=== PATIENT | male | born 1970 | race Caucasian/White ===

== ENCOUNTER → 2020-07-15 | Emergency (ER) | payer OTHER ==
[~2020-07-15] VITALS: Ht 172.7 cm; Wt 76.2 kg
[~2020-07-15] MED LIST: AZITHROMYCIN250 MG PO; CITALOPRAM HBR40 MG PO; ESTAZOLAM2 MG PO; MOTION RELIEF25 MG PO; PHENERGAN25 MG PO
== END | disposition home or self-care (01) ==
LOC: ER 13:00
DX: H81.13 Benign paroxysmal vertigo, bilateral (principal); R51.9 Headache, unspecified; Z03.818 Encounter for observation for suspected exposure to other biological agents ruled out

== ENCOUNTER 2020-08-18 11:39 | Outpatient (CLI) | payer OTHER | END 2020-08-18 13:04 | disposition home or self-care (01) | LOC: OFIC 805 11:39 | PROVIDERS: ATTEND Otolaryngology | DX: H81.12 Benign paroxysmal vertigo, left ear (principal) ==

== ENCOUNTER 2023-08-10 06:47 | Emergency (ER) | payer OTHER ==
[~2023-08-10] VITALS: Ht 172.7 cm; Wt 80.7 kg
[2023-08-10] MEDS ORDERED: ZOLOFT25 MG (07:03)
[2023-08-10] MEDS ORDERED: FAMOTIDINE/PF 20 MG/2 ML VIAL IV PUSH STA (08:33)
[2023-08-10] MEDS ORDERED: KETOROLAC TROMETHAMINE 30 MG VIAL IV STA (08:34)
[2023-08-10] MEDS ORDERED: 0.9 % SODIUM CHLORIDE 1,000 ML IV SCH (08:45)
[2023-08-10] MEDS ORDERED: PROMETHAZINE HCL 50 MG/ML AMPUL IM ONE (08:45)
[2023-08-10] MEDS ORDERED: HYOSCYAMINE SULFATE 0.125 MG TAB.SUBL SL ONE (08:45)
[2023-08-10 08:49] LABS: HEMATOCRIT 46.1 % (39.0-48.0); HEMOGLOBIN 15.7 g/dL (13-16.00); MEAN CELL VOLUME 99.3 fL (80.0-100.00); MEAN CORPUSCULAR HEMOGLOBIN 33.8 pg (27.00-32.0); PLATELET COUNT 296 K/uL (150-450); RED BLOOD COUNT 4.65 M/uL (4.00-6.00); RED CELL DISTRIBUTION WIDTH 12.5 % (11.5-14.5)
[2023-08-10 09:17] LABS: ALBUMIN 4.4 gm/dL (3.4-5.0); BILIRUBIN TOTAL 1.17 mg/dL (0.3-1.2); CALCIUM 9.5 mg/dL (8.5-10.1); CREATININE SERUM 0.88 mg/dL (0.70-1.30); GFR 90.59; GLOBULINA 2.9 G/DL (2.4-3.5); MAGNESIUM 2.2 mg/dL (1.8-2.4); POTASSIUM 4.49 mEq/L (3.5-5.1); TOTAL PROTEIN 7.3 gm/dL (6.4-8.2)
[2023-08-10] MEDS ORDERED: PEPCID AC20 MG PO (10:57)
[2023-08-10] MEDS ORDERED: LEVSIN/SL0.125 MG PO (10:57)
[2023-08-10] MEDS ORDERED: INTESTINEX680 M1 PO (10:57)
[2023-08-10] MEDS ORDERED: ONDANSETRON ODT4 MG PO (10:57)
== END 2023-08-10 11:08 ==
LOC: ER 06:48
PROVIDERS: General Practice
DX: K52.89 Other specified noninfective gastroenteritis and colitis (principal); E86.0 Dehydration; R10.10 Upper abdominal pain, unspecified; Z88.0 Allergy status to penicillin

== ENCOUNTER 2023-12-11 09:09 | Inpatient (IN) | payer OTHER ==
[~2023-12-11] VITALS: Ht 172.7 cm; Wt 81.6 kg
[~2023-12-11 09:09] MED LIST changes: +INTESTINEX680 M1 PO; +LEVSIN/SL0.125 MG PO; +ONDANSETRON ODT4 MG PO; +PEPCID AC20 MG PO; +ZOLOFT25 MG
[2023-12-11] MEDS ORDERED: ATROPINE SULFATE 0.4 MG/ML VIAL IV ONE (09:45)
[2023-12-11] MEDS ORDERED: 0.9 % SODIUM CHLORIDE 500 ML IV ONE (09:45)
[2023-12-11] MEDS ORDERED: 0.9 % SODIUM CHLORIDE 1,000 ML IV SCH (09:45)
[2023-12-11] MEDS ORDERED: LORAZEPAM0.5 MG PO (09:46)
--- NOTE | 2023-12-11 09:48 | NUR ---
PTE ALERTA Y ORIENTADO X3 EN COMPANIA DE ESPOSA. LA MISMA REFIERE VARIOS EPISODIOS DE DIRREAH, VOMITOS, MAREOS, DOLOR DE PECHO, DOLOR DE LEIGHANN Y PALPITACIONES Y DOLOR ABDOMINAL. PTE CON PULSO EN 37 AL MOMENTO DEL TRIAGE. SE REALIZA EKG Y SE PRESENTA A DR. SILVA. SE COLCA EN AREA DE CHEST PIAN SE CONECTA A MONITOR CARDIACO Y SATUROMETRO.
--- NOTE | 2023-12-11 09:53 | NUR ---
SE CONECTA A MONITOR CARDIACO, NBP Y OXIMETRIA CONTINUA. SE ORIENTA A PTE SOBRE TRATAMIENTO E INSTRUCCIONES A SEGUIR, SE COLECTA MUESTRAS, SE CANALIZA Y SE ADMINISTRA MEDICAMENTO ASHLEY ORDEN MEDICA.
[2023-12-11 10:01] LABS: HEMATOCRIT 44.9 % (39.0-48.0); MEAN CELL VOLUME 99.9 fL (80.0-100.00); MEAN CORPUSCULAR HEMOGLOBIN 33.4 pg (27.00-32.0); MEAN CORPUSCULAR HGB CONC 33.5 g/dl (32.0-36.0); PLATELET COUNT 370 K/uL (150-450); RED BLOOD COUNT 4.49 M/uL (4.00-6.00); RED CELL DISTRIBUTION WIDTH 12.8 % (11.5-14.5)
[2023-12-11 10:29] LABS: PARTIAL THROMBOPLASTIN TIME 25.4 SECONDS (22.0-34.0); PROTHROMBIN TIME 10.5 SECONDS (9.0-11.5)
[2023-12-11 10:33] LABS: ABG PH 7.475 (7.35-7.45); ABG pCO2 23.7 mmHg (35-45); BASE EXCESS -4.4 mmol/l; SaO2 96.6 %
[2023-12-11 10:36] LABS: allen test SATISFACTORY; o2 32 %; puncture site RADIAL RIGHT
[2023-12-11 10:39] LABS: proBNP 32 pg/mL (0-39)
[2023-12-11 10:42] LABS: TROPONIN I hs < 3.0 PG/ML (42.2-82.3)
[2023-12-11 10:43] LABS: ALKALINE PHOSPHATASE 100 U/L (50-136); ALT/SGPT 31 U/L (12-78); ANION GAP 7 (10.0-20.0); AST/SGOT 13 U/L (15-37); BLOOD UREA NITROGEN 26 mg/dL (7-18); BUN CREA RATIO 16 (7.0-25.0); CALCIUM 9.2 mg/dL (8.5-10.1); CARBON DIOXIDE 27 mEq/L (21-32); CHLORIDE 110 mmol/L (98-107); CREATININE SERUM 1.63 mg/dL (0.70-1.30); GFR 44.48; GLOBULINA 3.4 G/DL (2.4-3.5); POTASSIUM 4.85 mEq/L (3.5-5.1); SODIUM 139 mmol/L (136-145); TOTAL PROTEIN 7.4 gm/dL (6.4-8.2)
[2023-12-11 10:48] LABS: CKMB < 1.0 NG/ML (0.5-3.6); GLUCOSE FASTING 205 mg/dL (65-100); OSMOLALITY SERUM 288 MOSM/KG (275-295)
[2023-12-11] MEDS ORDERED: FAMOtidine 10 MG/ML (4ML VIAL) IV STA (10:59)
[2023-12-11] MEDS ORDERED: ATROPINE SULFATE 0.4 MG/ML VIAL IV STA (12:10)
--- NOTE | 2023-12-11 12:14 | NUR ---
0955 DA ORDEN VERBAL DE ADMINISTRAR 2L DE .9NSS 1000 FULLDRIP. SE EJECUTA ORDEN MEDICA. 1045 SE NOTIFICA A SOBRE BP EN 86/54MMHG Y PULSO EN 56/MIN, EL MISMO REFIERE ADMINISTRAR 1 LT DE .9NSS 1000ML. DESPUES DE ESTO ADMINISTRAR .9NSS 1000ML BAJANDO A 250ML/HR. SE EJECUTA ORDEN MEDICA Y SE MANTIENE BAJO OBSERVACION. 1200 SE NOTIFICA A SOBRE BP EN 83/43MMHG Y PUSLO EN 48/MIN, EL REFIERE ADMINISTRAR ATROPINA 0.4MG IV, SE EJECUTA ORDEN MEDICA, SE MATIENE BAJO OBSERVACION.
[2023-12-11 13:26] LABS: CREATININE SERUM 1.02 mg/dL (0.70-1.30); GFR 76.4; POTASSIUM 4.3 mEq/L (3.5-5.1)
[2023-12-11] MEDS ORDERED: PANTOPRAZOLE SODIUM 40 MG/VIAL VIAL IV SCH (14:07)
[2023-12-11] MEDS ORDERED: NOREPINEPHRINE BITARTRATE 8 MG in DEXTROSE 5 % IN WATER 250 ML IV SCH (14:15)
[2023-12-11 14:30] LABS: PH,URINE 6.5 (5.0-8.0); URINE APPEARANCE Clear; URINE BILIRRUBIN Negative (NEGATIVE); URINE BLOOD Negative; URINE COLOR Yellow; URINE GLUCOSE Negative (NEGATIVE); URINE LEUKOCYTE Negative; URINE NITRATE Negative; URINE PROTEIN Trace (NEGATIVE); URINE UROBILINOGEN 0.2 E.U./dl
[2023-12-11 14:34] LABS: URINE BACTERIA 13.8 uL (0.0-1933); URINE EPITHELIAL CELLS 14.6 uL (0.0-38.8); URINE RBC 2.2 uL (0.0-20.8); URINE WBC 7.7 uL (0.0-23.2)
[2023-12-11] MEDS ORDERED: RINGERS SOLUTION,LACTATED 1,000 ML IV SCH (15:00)
[2023-12-11 15:17] LABS: URINE CRYSTALS FEW /HPF
[2023-12-11 15:18] LABS: URINE MUCUS SCANT
[2023-12-11] MEDS ORDERED: FAMOTIDINE/PF 20 MG/2 ML VIAL IV STA (18:21)
[2023-12-12 07:34] LABS: HEMATOCRIT 38.3 % (39.0-48.0); HEMOGLOBIN 13.1 g/dL (13-16.00); MEAN CELL VOLUME 99.7 fL (80.0-100.00); MEAN CORPUSCULAR HEMOGLOBIN 34.1 pg (27.00-32.0); MEAN CORPUSCULAR HGB CONC 34.2 g/dl (32.0-36.0); PLATELET COUNT 256 K/uL (150-450); RED BLOOD COUNT 3.84 M/uL (4.00-6.00); RED CELL DISTRIBUTION WIDTH 12.7 % (11.5-14.5)
[2023-12-12 07:54] LABS: BILIRUBIN TOTAL 0.82 mg/dL (0.3-1.2); CALCIUM 8.2 mg/dL (8.5-10.1); CREATININE SERUM 0.98 mg/dL (0.70-1.30); GFR 80.01; GLOBULINA 2.6 G/DL (2.4-3.5); MAGNESIUM 1.8 mg/dL (1.8-2.4); PHOSPHOROUS 2.5 mg/dL (2.5-4.9); POTASSIUM 3.75 mEq/L (3.5-5.1); TOTAL PROTEIN 5.6 gm/dL (6.4-8.2)
[2023-12-12] MEDS ORDERED: ENOXAPARIN SODIUM 40 MG/0.4 ML SYRINGE SUBCUTANEO SCH (09:00)
[2023-12-13] MEDS ORDERED: SERTRALINE HCL 100 MG TABLET PO SCH (09:00)
[2023-12-14 07:33] LABS: HEMATOCRIT 38.8 % (39.0-48.0); HEMOGLOBIN 13.5 g/dL (13-16.00); MEAN CELL VOLUME 96.8 fL (80.0-100.00); MEAN CORPUSCULAR HEMOGLOBIN 33.8 pg (27.00-32.0); MEAN CORPUSCULAR HGB CONC 34.9 g/dl (32.0-36.0); PLATELET COUNT 254 K/uL (150-450); RED BLOOD COUNT 4.01 M/uL (4.00-6.00); RED CELL DISTRIBUTION WIDTH 12.6 % (11.5-14.5)
[2023-12-14 07:58] LABS: ALBUMIN 3.5 gm/dL (3.4-5.0); BILIRUBIN TOTAL 0.86 mg/dL (0.3-1.2); CALCIUM 8.8 mg/dL (8.5-10.1); CREATININE SERUM 0.84 mg/dL (0.70-1.30); GFR 95.58; GLOBULINA 2.7 G/DL (2.4-3.5); MAGNESIUM 1.8 mg/dL (1.8-2.4); PHOSPHOROUS 3.9 mg/dL (2.5-4.9); POTASSIUM 3.37 mEq/L (3.5-5.1); TOTAL PROTEIN 6.2 gm/dL (6.4-8.2)
[2023-12-14] MEDS ORDERED: POTASSIUM BICARBONATE/CIT AC 25 MEQ TABLET.EFF PO NR (11:27)
[2023-12-14] MEDS ORDERED: HYOSCYAMINE SULFATE 0.125 MG TAB.SUBL PO PRN (18:15)
[2023-12-14] MEDS ORDERED: LOPERAMIDE HCL 2 MG CAPSULE PO PRN (18:15)
== END 2023-12-15 17:03 | disposition home or self-care (01) | DRG 308 ==
LOC: ER 09:10 → ICU-2 16:55 → MEDJ 12-13 18:25
PROVIDERS: General Practice; ADMIT Internal Medicine; ATTEND Internal Medicine
PROC: BW21ZZZ Computerized Tomography (CT Scan) of Abdomen and Pelvis (ICD-10-PCS; principal; 2023-12-11)
PROC: B24BYZZ Ultrasonography of Heart with Aorta using Other Contrast (ICD-10-PCS; 2023-12-11)
PROC: BF37ZZZ Magnetic Resonance Imaging (MRI) of Pancreas (ICD-10-PCS; 2023-12-12)
PROC: 4A12X4Z Monitoring of Cardiac Electrical Activity, External Approach (ICD-10-PCS; 2023-12-14)
DX: R00.1 Bradycardia, unspecified (principal); R57.1 Hypovolemic shock; K86.2 Cyst of pancreas; I95.9 Hypotension, unspecified; K52.9 Noninfective gastroenteritis and colitis, unspecified; T61.01XA Ciguatera fish poisoning, accidental (unintentional), initial encounter; D49.0 Neoplasm of unspecified behavior of digestive system

== ENCOUNTER 2024-03-02 13:47 | Outpatient (CLI) | payer OTHER ==
[~2024-03-02 13:47] MED LIST changes: +LORAZEPAM0.5 MG PO
[2024-03-02 16:06] LABS: INR 1.02; PARTIAL THROMBOPLASTIN TIME 31.8 SECONDS (22.0-34.0); PROTHROMBIN TIME 11.1 SECONDS (9.0-11.5)
== END 2024-03-02 13:54 | disposition home or self-care (01) ==
LOC: LAB 13:47
PROVIDERS: ATTEND Internal Medicine
DX: Z01.818 Encounter for other preprocedural examination (principal); D68.9 Coagulation defect, unspecified; R00.2 Palpitations

== ENCOUNTER 2024-05-21 16:19 | Inpatient (IN) | payer OTHER ==
[~2024-05-21] VITALS: Ht 172.7 cm; Wt 78.9 kg
--- NOTE | 2024-05-21 16:50 | NUR ---
SE RECIBE MASCULINO ALERTA Y ORIENTADO X3 CUAL REFEIRE SE CHAPARRITA HOY EN LA TARDE EN REIS CASA Y SE GOLPEO LA PARTE INFERIOR DE ALFRED GUTEOS. VERBALIZA AREA ESTA INFLAMADA.
[2024-05-21] MEDS ORDERED: KETOROLAC TROMETHAMINE 60 MG VIAL IM ONE (17:15)
[2024-05-21 17:34] LABS: HEMATOCRIT 41.3 % (39.0-48.0); HEMOGLOBIN 13.8 g/dL (13-16.00); MEAN CELL VOLUME 97.2 fL (80.0-100.00); MEAN CORPUSCULAR HEMOGLOBIN 32.5 pg (27.00-32.0); MEAN CORPUSCULAR HGB CONC 33.5 g/dl (32.0-36.0); PLATELET COUNT 307 K/uL (150-450); RED BLOOD COUNT 4.24 M/uL (4.00-6.00); RED CELL DISTRIBUTION WIDTH 13.1 % (11.5-14.5)
--- NOTE | 2024-05-21 17:34 | NUR ---
SE ORIENTA PTE SOBRE TX MEDICO EL CUAL REFIERE ENTENDER.SE LE EXTRAEN MUESTRAS BAJO MEDIDAS ASEPTICAS,SE CANALIZA Y SE ADMINISRTRA MEDICAMENTO.SE NOTIFICA CT.
[2024-05-21 18:00] LABS: BILIRUBIN TOTAL 0.92 mg/dL (0.3-1.2); CALCIUM 9.2 mg/dL (8.5-10.1); CREATININE SERUM 1.2 mg/dL (0.70-1.30); GFR 63.33; POTASSIUM 3.49 mEq/L (3.5-5.1)
[2024-05-21] MEDS ORDERED: TUSNEL LIQUID178 ML PO (20:38)
[2024-05-21] MEDS ORDERED: IPRAT-ALBUT 0.5-3 ML IH (20:38)
[2024-05-21] MEDS ORDERED: ZITHROMAX500 MG PO (20:38)
[2024-05-21] MEDS ORDERED: CIPROFLOXACIN IN 5 % DEXTROSE 200 ML IV SCH (21:02)
[2024-05-21] MEDS ORDERED: POTASSIUM BICARBONATE/CIT AC 25 MEQ TABLET.EFF PO ONE (21:15)
[2024-05-21] MEDS ORDERED: MORPHINE SULFATE 2 MG/ML CARTRIDGE IV PRN (21:15)
[2024-05-21] MEDS ORDERED: MORPHINE SULFATE 2 MG/ML CARTRIDGE IV SCH (21:15)
[2024-05-21] MEDS ORDERED: 0.9 % SODIUM CHLORIDE 1,000 ML IV SCH (21:15)
[2024-05-21] MEDS ORDERED: ACETAMINOPHEN 500 MG GEL..CAP PO PRN (21:15)
[2024-05-22] MEDS ORDERED: METRONIDAZOLE/SODIUM CHLORIDE 100 ML IV SCH (01:00)
[2024-05-22 01:14] LABS: INR 0.99; PARTIAL THROMBOPLASTIN TIME 27.8 SECONDS (22.0-34.0); PROTHROMBIN TIME 10.8 SECONDS (9.0-11.5)
[2024-05-22 06:16] VITALS: BP 142/76; O2SAT 98
[2024-05-22 08:29] LABS: PH,URINE 5.5 (5.0-8.0); URINE APPEARANCE Clear; URINE BILIRRUBIN Negative (NEGATIVE); URINE BLOOD Negative; URINE COLOR Yellow; URINE GLUCOSE Negative (NEGATIVE); URINE KETONE Negative (NEGATIVE); URINE LEUKOCYTE Negative; URINE NITRATE Negative; URINE PROTEIN Negative (NEGATIVE); URINE UROBILINOGEN 0.2 E.U./dl
[2024-05-22 08:33] LABS: URINE BACTERIA 8.5 uL (0.0-1933); URINE EPITHELIAL CELLS 2.6 uL (0.0-38.8); URINE RBC 6.3 uL (0.0-20.8); URINE WBC 7.2 uL (0.0-23.2)
[2024-05-22] MEDS ORDERED: SERTRALINE HCL 100 MG TABLET PO SCH (09:00)
[2024-05-22] MEDS ORDERED: FAMOTIDINE/PF 20 MG in 0.9 % SODIUM CHLORIDE 8 ML IV PUSH SCH (09:00)
[2024-05-22 09:22] LABS: URINE CAST 0.14 uL (0.0-1.40)
[2024-05-22 11:07] VITALS: BP 115/81; O2SAT 97
[2024-05-22 16:00] VITALS: BP 97/66; O2SAT 96
[2024-05-22] MEDS ORDERED: DOCUSATE SODIUM 100MG CAP PO SCH (18:03)
[2024-05-22] MEDS ORDERED: METHYLPREDNISOLONE SOD SUCC 40 MG VIAL IV ONE (18:15)
[2024-05-22] MEDS ORDERED: MIDAZOLAM HCL 2 MG/2 ML VIAL IV PUSH ONE (19:00)
[2024-05-22] MEDS ORDERED: fentaNYL CITRATE 50 MCG/ML AMPUL IV PUSH ONE (19:00)
[2024-05-23 00:20] VITALS: BP 133/83; O2SAT 96
[2024-05-23 07:37] LABS: ALBUMIN 3.4 gm/dL (3.4-5.0); BILIRUBIN TOTAL 0.68 mg/dL (0.3-1.2); CREATININE SERUM 0.97 mg/dL (0.70-1.30); GFR 80.96; GLOBULINA 2.7 G/DL (2.4-3.5); MAGNESIUM 2.1 mg/dL (1.8-2.4); PHOSPHOROUS 2.7 mg/dL (2.5-4.9); POTASSIUM 5.08 mEq/L (3.5-5.1); TOTAL PROTEIN 6.1 gm/dL (6.4-8.2)
[2024-05-23 07:58] LABS: HEMATOCRIT 38.6 % (39.0-48.0); HEMOGLOBIN 13.2 g/dL (13-16.00); MEAN CELL VOLUME 96.1 fL (80.0-100.00); MEAN CORPUSCULAR HGB CONC 34.3 g/dl (32.0-36.0); PLATELET COUNT 264 K/uL (150-450); RED BLOOD COUNT 4.02 M/uL (4.00-6.00); RED CELL DISTRIBUTION WIDTH 13.3 % (11.5-14.5)
[2024-05-23 08:59] VITALS: BP 119/78; O2SAT 98
[2024-05-23 15:36] VITALS: BP 126/76; O2SAT 97
[2024-05-24 01:07] VITALS: BP 119/72; O2SAT 100
[2024-05-24 07:44] LABS: HEMATOCRIT 38.5 % (39.0-48.0); HEMOGLOBIN 13.2 g/dL (13-16.00); MEAN CELL VOLUME 96.5 fL (80.0-100.00); MEAN CORPUSCULAR HEMOGLOBIN 33.1 pg (27.00-32.0); MEAN CORPUSCULAR HGB CONC 34.3 g/dl (32.0-36.0); PLATELET COUNT 267 K/uL (150-450); RED BLOOD COUNT 3.99 M/uL (4.00-6.00); RED CELL DISTRIBUTION WIDTH 13.6 % (11.5-14.5)
[2024-05-24 08:34] VITALS: BP 129/80; O2SAT 97
[2024-05-24 16:29] VITALS: BP 121/70; O2SAT 96
[2024-05-25 00:10] VITALS: BP 127/77; O2SAT 100
[2024-05-25 06:42] LABS: HEMATOCRIT 39.8 % (39.0-48.0); HEMOGLOBIN 13.3 g/dL (13-16.00); MEAN CELL VOLUME 98.4 fL (80.0-100.00); MEAN CORPUSCULAR HEMOGLOBIN 32.8 pg (27.00-32.0); MEAN CORPUSCULAR HGB CONC 33.3 g/dl (32.0-36.0); PLATELET COUNT 238 K/uL (150-450); RED BLOOD COUNT 4.05 M/uL (4.00-6.00); RED CELL DISTRIBUTION WIDTH 13.4 % (11.5-14.5)
[2024-05-25 06:45] LABS: ALBUMIN 3.3 gm/dL (3.4-5.0); CALCIUM 8.5 mg/dL (8.5-10.1); CREATININE SERUM 0.86 mg/dL (0.70-1.30); GFR 93.02; GLOBULINA 2.4 G/DL (2.4-3.5); POTASSIUM 4.38 mEq/L (3.5-5.1); TOTAL PROTEIN 5.7 gm/dL (6.4-8.2)
[2024-05-25 08:00] VITALS: BP 113/70; O2SAT 95
[2024-05-25 18:50] VITALS: BP 137/73
[2024-05-26 01:54] VITALS: BP 133/87; O2SAT 97
[2024-05-26 07:32] VITALS: BP 124/79
== END 2024-05-26 14:45 | disposition home or self-care (01) | DRG 603 ==
LOC: ER 16:21 → SURG 22:36 → SEC-K 22:36 → SURG 05-22 01:06 → MEDI 05-25 14:47
PROVIDERS: General Practice; Internal Medicine; ADMIT Internal Medicine; ATTEND Internal Medicine
PROC: BW2GYZZ Computerized Tomography (CT Scan) of Pelvic Region using Other Contrast (ICD-10-PCS; 2024-05-21)
PROC: 0H98X0Z Drainage of Buttock Skin with Drainage Device, External Approach (ICD-10-PCS; principal; 2024-05-22)
DX: L02.31 Cutaneous abscess of buttock (principal); T14.8XXA Other injury of unspecified body region, initial encounter

== ENCOUNTER 2025-01-12 16:34 | Emergency (ER) | payer OTHER ==
[~2025-01-12] VITALS: Ht 172.7 cm; Wt 84.8 kg
[~2025-01-12 16:34] MED LIST changes: +IPRAT-ALBUT 0.5-3 ML IH; +TUSNEL LIQUID178 ML PO; +ZITHROMAX500 MG PO
[2025-01-12] MEDS ORDERED: ONDANSETRON HCL 2 MG/ML VIAL IV STA (17:22)
[2025-01-12] MEDS ORDERED: 0.9 % SODIUM CHLORIDE 1,000 ML IV STA (17:22)
[2025-01-12] MEDS ORDERED: FAMOTIDINE/PF 20 MG/2 ML VIAL ONE (17:23)
[2025-01-12] MEDS ORDERED: FAMOtidine 10 MG/ML (4ML VIAL) IV PUSH STA (17:23)
[2025-01-12] MEDS ORDERED: ONDANSETRON HCL 2 MG/ML VIAL ONE (17:23)
[2025-01-12 17:51] LABS: BASO % 0.3 % (0.1-1.2); EOS # 0.11 (0.04-0.54); EOS % 1.1 % (0.7-7.0); LYMPH # 1.00 (1.18-3.74); LYMPH % 10.2 % (19.3-53.1); MEAN PLATELET VOLUME 9.60 fl (9.4-12.4); MONO # 0.53 (0.24-0.82); MONO % 5.4 % (4.7-12.5); NEUT # 8.13 (1.56-6.13); NEUT % 82.6 % (34.0-71.1); RED CELL DISTRIBUTION WIDTH 11.7 % (11.6-14.4)
[2025-01-12 18:16] LABS: ALT/SGPT 28.0 U/L (12-78); AST/SGOT 14.0 U/L (15-37); BILIRUBIN TOTAL 0.84 mg/dL (0.3-1.2); BUN CREA RATIO 17.0 (7.0-25.0); CREATININE SERUM 0.92 mg/dL (0.70-1.30); GFR 85.73; GLOBULINA 3.0 G/DL (2.4-3.5); GLUCOSE FASTING 154.0 mg/dL (65-100); OSMOLALITY SERUM 287.0 MOSM/KG (275-295)
[2025-01-12] MEDS ORDERED: POTASSIUM CHLORIDE 8 MEQ TABLET PO STA (18:23)
[2025-01-12] MEDS ORDERED: FLUMAZENIL 0.5 MG/5 ML ML IV STA (19:52)
[2025-01-12] MEDS ORDERED: FLUMAZENIL 0.5 MG/5 ML ML IV ONE (19:54)
== END 2025-01-12 20:41 | disposition home or self-care (01) ==
LOC: ER 16:34
DX: R10.13 Epigastric pain (principal); Z88.0 Allergy status to penicillin

== ENCOUNTER 2025-05-18 15:44 | Outpatient (CLI) | payer OTHER | END 2025-05-18 15:52 | disposition home or self-care (01) | LOC: SONOGRAMA 15:44 | DX: R59.0 Localized enlarged lymph nodes (principal) ==

== ENCOUNTER 2025-05-27 13:31 | Outpatient (CLI) | payer OTHER | END 2025-05-27 13:35 | disposition home or self-care (01) | LOC: SONOGRAMA 13:31 | PROVIDERS: ATTEND Pathology Anatomic Pathology & Clinical Pathology | DX: C49.5 Malignant neoplasm of connective and soft tissue of pelvis (principal); R59.0 Localized enlarged lymph nodes ==